=== PATIENT | female | born 1995 | race African-American/Black ===

== ENCOUNTER 2017-06-12 11:52 | Emergency (ER) | payer MEDICAID ==
[~2017-06-12] VITALS: Ht 157.5 cm; Wt 81.0 kg
[2017-06-12 12:05] VITALS: BP 109/72
[2017-06-12 12:54] LABS: HEMATOCRIT 38.8 % (34.6-47.8); HEMOGLOBIN 12.3 g/dL (11.7-16.4); WHITE BLOOD COUNT 7.8 x10^3/uL (3.4-10)
[2017-06-12] MEDS ORDERED: ONDANSETRON ODT 4 MG PO ONE (13:00)
== END 2017-06-12 15:53 | disposition home or self-care (01) ==
LOC: ED 13:26
DX: O26.851 Spotting complicating pregnancy, first trimester (principal); O21.9 Vomiting of pregnancy, unspecified; Z3A.09 9 weeks gestation of pregnancy
CPT/HCPCS: 36415; 76801; 84702; 85025; 86901; 99285